=== PATIENT | female | born 1955 | race Caucasian/White ===

== ENCOUNTER 2016-07-06 10:23 | Emergency (ER) | payer BC ==
[~2016-07-06] VITALS: Ht 172.7 cm; Wt 65.8 kg
[2016-07-06] MEDS ORDERED: PROMETHAZINE IM 25 MG/ML VIAL IM ONE (11:15)
[2016-07-06] MEDS ORDERED: KETOROLAC TROMETHAMINE 60 MG/2 ML SYRINGE. IM ONE (11:15)
[2016-07-06] MEDS ORDERED: DIPHENHYDRAMINE 50 MG/ML VIAL IM ONE (11:15)
[2016-07-06] MEDS ORDERED: RIZA10TA PO (11:53)
--- NOTE | 2016-07-06 11:53 | PHYS DOC ---
Past Medical History Past Medical History: Migraines Past Surgical History: No Surgical History Additional Information: 06/08 ppd Alcohol Use: None Drug Use: None Adult General Chief Complaint Chief Complaint: HEADACHE HPI HPI Patient is a 60 year old female with history of migraine headaches who presents today with a mild intermittent generalized headache that began 6 days ago. Patient states the headache is worse when she wears her glasses, she states her glasses are very old and she needs a new prescription. She has an appointment with her eye doctor tomorrow. Review of Systems Review of Systems Constitutional: Denies fever or chills [] Eyes: Denies change in visual acuity, redness, or eye pain [] HENT: Denies nasal congestion or sore throat [] Respiratory: Denies cough or shortness of breath [] Cardiovascular: No additional information not addressed in HPI [] GI: Denies abdominal pain, nausea, vomiting, bloody stools or diarrhea [] : Denies dysuria or hematuria [] Musculoskeletal: Denies back pain or joint pain [] Integument: Denies rash or skin lesions [] Neurologic: Migraine Endocrine: Denies polyuria or polydipsia [] Current Medications Current Medications Current Medications Medications (Trade) Dose Ordered Sig/Cindy Start Time Stop Time Status Last Admin Dose Admin Diphenhydramine HCl (Benadryl) 25 mg 1X ONCE 07/06/16 11:15 07/06/16 11:16 DC 07/06/16 11:46 25 MG Ketorolac Tromethamine (Toradol Im) 60 mg 1X ONCE 07/06/16 11:15 07/06/16 11:16 DC 07/06/16 11:45 60 MG Promethazine HCl (Phenergan Im) 25 mg 1X ONCE 07/06/16 11:15 07/06/16 11:16 DC 07/06/16 11:46 25 MG Allergies Allergies Allergies Coded Allergies Type Severity Reaction Last Updated Verified Penicillins Allergy Severe "skin peels off" 07/06/16 Yes Physical Exam Physical Exam Constitutional: Well developed, well nourished, no acute distress, non-toxic appearance. [] HENT: Normocephalic, atraumatic, bilateral external ears normal, oropharynx moist, no oral exudates, nose normal. [] Eyes: PERRLA, EOMI, conjunctiva normal, no discharge. [] Neck: Normal range of motion, no tenderness, supple, no stridor. [] Cardiovascular:Heart rate regular rhythm, no murmur [] Lungs & Thorax: Bilateral breath sounds clear to auscultation [] Abdomen: Bowel sounds normal, soft, no tenderness, no masses, no pulsatile masses. [] Skin: Warm, dry, no erythema, no rash. [] Back: No tenderness, no CVA tenderness. [] Extremities: No tenderness, no cyanosis, no clubbing, ROM intact, no edema. [] Neurologic: Alert and oriented X 3, normal motor function, normal sensory function, no focal deficits noted. Cranial nerves II through XII intact Psychologic: Affect normal, judgement normal, mood normal. [] Current Patient Data Vital Signs Vital Signs Date Time Temp Pulse Resp B/P Pulse Ox O2 Delivery O2 Flow Rate FiO2 07/06/16 10:35 99.8 83 20 101/55 Room Air 99.8 EKG EKG [] Radiology/Procedures Radiology/Procedures [] Course & Med Decision Making Course & Med Decision Making Pertinent Labs and Imaging studies reviewed. (See chart for details) Patient is in the ED with her typical migraine headache that is worsened by her old prescription eyeglasses. I recommended she follows up with her eye doctor, she has an appointment tomorrow. In the ED we gave her Toradol promethazine and Benadryl. She was discharged with Maxalt. I also recommended she follows up with her PCP in 1-2 weeks. Dragon Disclaimer Dragon Disclaimer This electronic medical record was generated, in whole or in part, using a voice recognition dictation system. Departure Departure Impression: Primary Impression: Migraine headache Disposition: 01 HOME, SELF-CARE Condition: STABLE Referrals: ДМИТРИЙ JANG MD (PCP) Follow-up with your primary care doctor in a week Patient Instructions: Migraine Headache Additional Instructions: You were seen for a migraine headache which is worsened by your old prescription eyeglasses. Consider getting a new prescription eyeglasses by seeing your eye doctor as soon as possible. Take the prescribed medicines as needed for pain. Come back to the emergency room if symptoms worsen. Scripts Rizatriptan Benzoate (Maxalt)10 Mg Tablet1 Tab PO UD #9 TAB Ref 3 Prov:SHARONDA MENEESS [employer]ACATION SALES ADVISOR 07/06/16 Problem Qualifiers Primary Impression: Migraine headache Migraine type: without aura Status migrainosus presence: without status migrainosus Intractability: not intractable Qualified Code: G43.009 - Migraine without aura, not intractable, without status migrainosus SHARONDA MENESES APRN Jul 06, 2016 11:53
[2016-07-06 12:00] VITALS: BP 112/59
== END 2016-07-06 12:31 | disposition home or self-care (01) ==
LOC: ER 10:23
DX: G43.909 Migraine, unspecified, not intractable, without status migrainosus (principal); F17.200 Nicotine dependence, unspecified, uncomplicated; Z88.0 Allergy status to penicillin
CPT/HCPCS: 96372; 99284; J1200; J1885; J2550

== ENCOUNTER → 2018-03-04 | Outpatient (CLI) | payer BC ==
[~2018-03-04] MED LIST: IOHEXOL 300 MG/ML 100ML VIAL. IV ONE; REGADENOSON 0.4 MG/5 ML DISP.SYRIN. IV ONE; RIZA10TA PO
--- NOTE | 2018-03-04 13:20 | RAD ---
MR#: [id number] Date of Study: 03/04/2018 Ordering Physician: FABIEN FAIR, Referring Physician: MCKENNA TALLEY Tech: RON Singh, ARRT (R) (N) APPROVED REPORT Test Type: Pharmacological Stress Nurse/Tech: Soni Baltazar R.N. Test Indications: left arm pain Cardiac History: No known cardiac , Hypertension, smoker Medications: See Electronic Medical Record Medical History: See Electronic Medical Record Resting ECG: NSR Resting Heart Rate: 61 bpm Resting Blood Pressure: 149/70mmHg Pretest Chest Pain: No chest pain Nurse/Tech Notes S1S2, lungs sound clear Consent: The procedure was explained to the patient in lay terms. Informed consent was witnessed. Eduardo eout was entered into [email or web address]. History and Stress Test performed by Soni Baltazar R.N. Pharm. Details Pharmacologic stress testing was performed using 0.4mg per 5ml of regadenoson given intravenously ove r 7-10 seconds. Stress Symptoms No chest pain or symptoms. POST EXERCISE Reason for Termination: Infusion complete Target HR: 136 Max HR: 101 bpm Max Blood Pressure: 151/59mmHg Blood Pressure response to exercise: Normal blood pressure response during stress. Chest Pain: No. Arrhythmia: No. ST Change: No. INTERPRETATION Stress EKG Conclusion: The resting EKG shows a sinus rhythm with mild nonspecific ST segment changes. The stress EKG shows no significant changes from baseline. No EKG evidence of stress-induced ischemia. Imaging Protocol IMAGE PROTOCOL: Rest Tc-99m/stress Tc-99m 1 day Rest: Stress: Viability: Radiopharm.Tc99m [id number] Sestamibi Dose12.2mCi 33mCi Img Date 03/04/2018 03/04/2018 Inj-Img [id number]. 60min. Rest Admin Site:IV - Right AntecubitalAdministrator:RT Robert (R)(N) Stress Admin Site: IV - Right AntecubitalAdministrator: RT Robert (R)(N) STRESS DATA End Diast. Vol.59.0mlLVEDV index BSA33.0ml End Syst. Vol.15.0mlLVESV index BSA8.0ml Myocardial Mass98.0gEject. Ryzrjqvp62.0% Stress Scores Regional WT0.00Summed WT0.00 Regional WM0.00Summed WM2.00 LV Perfusion The stress scans showed no significant defects. The rest scans showed no significant defects. Nuclear imaging shows no reversible ischemia or infarct. Wall Motion Normal left ventricular systolic function with an ejection fraction of greater than 70%. LV Perf. Quant 17 Seg. SSS0.00 17 Seg. SRS0.00 17 Seg. SDS0.00 Stress Defect Extent (% LAD)0.00Rest Defect Extent (% LAD)0.00Rev. Defect Extent (% LAD)0.00 Stress Defect Extent (% LCX) 0.00Rest Defect Extent (% LCX)0.00Rev. Defect Extent (% LCX)0.00 Stress Defect Extent (% RCA)0.00Rest Defect Extent (% RCA)0.00Rev. Defect Extent (% RCA)0.00 Stress Defect Extent (% AUGUSTUS)0.00Rest Defect Extent (% AUGUSTUS)0.00Rev. Defect Extent (% AUGUSTUS)0.00 Conclusion 1. No EKG evidence of stressed induced ischemia. 2. Nuclear imaging shows no reversible ischemia or infarct. 3. Normal left ventricular systolic function with an ejection fraction of greater than 70%. 4. Low risk Lexiscan nuclear stress test. Signed by : Fabien Fair MD Electronically Approved : 03/04/2018 13:19:08
--- NOTE | 2018-03-04 17:54 | RAD ---
CTA of the neck with contrast 03/04/2018 Clinical history: Carotid stenoses seen on recent ultrasound. Technique: After the intravenous administration 75 cc of Isovue-370, contiguous, 0.625 mm axial sections were obtained through the upper chest and neck Multiplanar 3-D MIP and volume rendered 3-D reconstructed images were obtained. One or more of the following individualized dose reduction techniques were utilized for this study: 1. Automated exposure control. 2. Adjustment of the mA and/or kV according to patient size. 3. Use of iterative reconstruction technique. Findings: Comparison is made to patient's carotid ultrasound dated 02/10/2018. Scattered atherosclerotic plaque formation seen involving the thoracic aortic arch and its branches. The origins of the brachiocephalic, left common carotid and left subclavian arteries from the thoracic aortic arch are patent. The origin of the right common carotid artery and the right vertebral artery are patent. 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 Moderate atheromatous/atherosclerotic plaque formation is seen involving both carotid bifurcations and proximal internal carotid arteries bilaterally. A 50 percent stenosis is seen proximal right internal carotid artery at its origin. This measures 8 mm in length. A 75 percent stenosis is seen involving the proximal left internal carotid artery near its origin. It measures 1 cm in length. No additional stenosis is seen involving either internal carotid artery. The right vertebral artery is dominant. No area stenosis or occlusion is seen. The left vertebral artery is very small and is only intermittently visualized with contrast within the mid/superior neck. Moderate to severe emphysematous changes are seen involving the apices of both lungs. No acute soft tissue abnormality is seen involving the neck. Degenerative changes are seen involving the uncovertebral and facet joints throughout the cervical disc spaces. IMPRESSION: 1. Moderate atheromatous/atherosclerotic plaque formation is seen involving both carotid bifurcations. A 50 percent stenosis is seen involving the proximal right internal carotid artery at its origin. This measures 8 mm in length. A 75 percent stenosis is seen involving the proximal left internal carotid artery near its origin. This measures 1 cm in length. 2. 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 Stenosis calculation for CTA are based on measurement of the distal internal carotid artery diameter in accordance with the NASCET methodology. Electronically signed by: Raleigh Fuentes MD (03/04/2018 5:50 PM) [id number]
== END | disposition home or self-care (01) ==
LOC: NM 09:03
PROVIDERS: ATTEND Internal Medicine Cardiovascular Disease
DX: I65.23 Occlusion and stenosis of bilateral carotid arteries (principal); I25.10 Atherosclerotic heart disease of native coronary artery without angina pectoris; J43.9 Emphysema, unspecified; G43.909 Migraine, unspecified, not intractable, without status migrainosus; F17.200 Nicotine dependence, unspecified, uncomplicated; Z88.0 Allergy status to penicillin
CPT/HCPCS: 70498; 78452; 93017; 96374; 96375; 96376; A9500; J2785; Q9967